=== PATIENT | male | born 1955 | race Caucasian/White ===

== ENCOUNTER 2016-05-17 14:44 | Inpatient (IN) | payer MEDICAID ==
[~2016-05-17] VITALS: Ht 167.6 cm; Wt 78.8 kg
[~2016-05-17 14:44] MED LIST: COMPLETE SENIOR1 TA1 PO; PYRIDIUM 100MG100 MG PO; ROXICODONE 55 MG/TAB PO; SENOKOT S 50 MG1 TAB PO
[2016-05-30 17:07] LABS: INR 1.1 (0.8-3.0); PROTHROMBIN TIME 12.6 SECONDS (9.7-12.8)
[2016-05-30 17:13] LABS: ADJUSTED CALCIUM 9.4 mg/dL (8.4-10.2); ALBUMIN 3.6 gm/dL (3.5-5.0); BILIRUBIN,TOTAL 1.3 mg/dL (0.0-1.0); CALCIUM 9.1 mg/dL (8.4-10.2); CREATININE, serum 1.12 mg/dL (0.66-1.25); TOTAL PROTEIN 7.6 gm/dL (6.4-8.2)
[2016-05-30 18:30] LABS: HEMOGLOBIN 12.1 g/dl (13.5-18.0); MEAN CELL VOLUME 96 fl (80.0-100.0); MEAN CORPUSCULAR HEMOGLOBIN 32 pg (27.0-31.0); MEAN CORPUSCULAR HGB CONC 33 g/dl (33.0-37.0); MEAN PLATELET VOLUME 13.7 fl (7.4-10.4); RED BLOOD COUNT 3.79 M/mm3 (4.20-5.60); REDCELL DISTRIBUTION WIDTH-CV 13.4 % (11.5-14.5); WHITE BLOOD COUNT 4.3 K/mm3 (4.8-10.8)
[2016-05-30 22:58] LABS: HEMATOCRIT 36.5 % (42.0-52.0)
[2016-05-31 16:10] LABS: PLATELET COUNT 39 K/mm3 (130-400)
[2016-06-01] VITALS (17 sets, daily range): BP systolic 105–133; BP diastolic 60–78; PULSE 59–88; TEMP 97.2–98.7
[2016-06-02 02:28] VITALS: BP 119/62; PULSE 85; TEMP 97.3
[2016-06-02 05:34] VITALS: BP 98/65; PULSE 73; TEMP 98.5
[2016-06-02 07:42] LABS: BASO % 0.1 % (0.0-2.0); GRAN # 7.4 (1.4-6.5); GRAN % 87.8 % (42.2-75.2); HEMOGLOBIN 12.1 g/dl (13.5-18.0); LYMPH # 0.5 (1.2-3.4); LYMPH % 6.1 % (20.0-51.0); MEAN CELL VOLUME 96 fl (80.0-100.0); MEAN CORPUSCULAR HEMOGLOBIN 32 pg (27.0-31.0); MEAN CORPUSCULAR HGB CONC 34 g/dl (33.0-37.0); MONO # 0.5 (0.1-0.6); MONO % 5.6 % (1.7-9.3); RED BLOOD COUNT 3.74 M/mm3 (4.20-5.60); REDCELL DISTRIBUTION WIDTH-CV 13.2 % (11.5-14.5); WHITE BLOOD COUNT 8.4 K/mm3 (4.8-10.8)
[2016-06-02 07:57] LABS: CALCIUM 8.7 mg/dL (8.4-10.2); CREATININE, serum 1.13 mg/dL (0.66-1.25)
[2016-06-02 08:05] LABS: HEMATOCRIT 35.9 % (42.0-52.0)
[2016-06-02 08:08] LABS: PLATELET COUNT 47 K/mm3 (130-400)
[2016-06-02 10:21] VITALS: BP 111/58; PULSE 63; TEMP 97.4
[2016-06-02 14:01] VITALS: BP 111/54; PULSE 67; TEMP 97.9
[2016-06-02 17:46] VITALS: BP 122/79; PULSE 70; TEMP 98.2
[2016-06-02 21:11] VITALS: BP 105/55; PULSE 64; TEMP 97.5
[2016-06-03 02:06] VITALS: BP 132/53; PULSE 71; TEMP 99.8
[2016-06-03 05:05] VITALS: BP 111/56; PULSE 88; TEMP 97.9
[2016-06-03 10:15] VITALS: BP 123/64; PULSE 74; TEMP 98.1
[2016-06-03 13:23] VITALS: BP 140/60; PULSE 70; TEMP 97
[2016-06-03 16:54] VITALS: BP 132/71; PULSE 88; TEMP 99.8
[2016-06-03 20:37] VITALS: BP 126/70; PULSE 90; TEMP 99.3
[2016-06-04 01:23] VITALS: TEMP 99.4
[2016-06-04 06:34] VITALS: BP 124/68; PULSE 88; TEMP 98.9
[2016-06-04 10:56] VITALS: BP 130/65; PULSE 87; TEMP 98.5
[2016-06-04 14:13] VITALS: BP 138/57; PULSE 90; TEMP 100.5
[2016-06-04 17:44] VITALS: BP 129/73; PULSE 91; TEMP 100.5
[2016-06-04 21:38] VITALS: BP 130/69; PULSE 86; TEMP 98
[2016-06-05 06:24] VITALS: BP 100/55; PULSE 76; TEMP 98.5
[2016-06-05 10:06] VITALS: BP 102/68; PULSE 61; TEMP 98.4
[2016-06-05 13:37] VITALS: BP 115/71; PULSE 82; TEMP 97.2
[2016-06-06 07:57] LABS: PATHOLOGY PLS
[2016-06-22 08:42] LABS: STONE ANALYSIS XXX
== END 2016-06-05 15:23 | disposition home or self-care (01) | DRG 660 ==
LOC: INPTSU 06-01 05:54 → SURG 06-01 13:00
PROVIDERS: Urology
PROC: 8E0W4CZ Robotic Assisted Procedure of Trunk Region, Percutaneous Endoscopic Approach (ICD-10-PCS; 2016-06-01)
PROC: 0TC44ZZ Extirpation of Matter from Left Kidney Pelvis, Percutaneous Endoscopic Approach (ICD-10-PCS; principal; 2016-06-01 13:00)
DX: N20.2 Calculus of kidney with calculus of ureter (principal); K76.6 Portal hypertension; D69.6 Thrombocytopenia, unspecified; K70.30 Alcoholic cirrhosis of liver without ascites; F10.10 Alcohol abuse, uncomplicated
CPT/HCPCS: 87522; A4315; A9284; J0690; J0694; J1100; J1170; J2270; J2405; J2704; J3010; J7030; J7120; P9035

== ENCOUNTER 2016-08-18 16:08 | Emergency (ER) | payer MEDICAID ==
[2016-08-18 16:15] VITALS: TEMP 97.6
[2016-08-18 17:13] LABS: BASO % 0.7 % (0.0-2.0); EOS # 0.1 (0.0-0.7); EOS % 2.4 % (0-4.0); GRAN # 1.5 (1.4-6.5); GRAN % 51.6 % (42.2-75.2); LYMPH % 34.8 % (20.0-51.0); MEAN CELL VOLUME 92 fl (80.0-100.0); MEAN CORPUSCULAR HGB CONC 34 g/dl (33.0-37.0); MEAN PLATELET VOLUME 13.4 fl (7.4-10.4); MONO # 0.3 (0.1-0.6); MONO % 10.5 % (1.7-9.3); RED BLOOD COUNT 3.76 M/mm3 (4.20-5.60); REDCELL DISTRIBUTION WIDTH-CV 14.7 % (11.5-14.5)
[2016-08-18 17:16] LABS: ADJUSTED CALCIUM 9.4 mg/dL (8.4-10.2); ALANINE AMINOTRANSFERASE 91 U/L (21-72); ALBUMIN 3.6 gm/dL (3.5-5.0); ALKALINE PHOSPHATASE 82 U/L (50-136); ANION GAP 12 mmol/L (7-16); BILIRUBIN,TOTAL 1.5 mg/dL (0.0-1.0); BLOOD UREA NITROGEN 19 mg/dL (9-20); C-REACTIVE PROTEIN < 0.5 mg/dL (0.0-0.9); CALCIUM 9.1 mg/dL (8.4-10.2); CARBON DIOXIDE 25 mmol/L (22-30); CHLORIDE 104 mmol/L (98-107); CREATININE, serum 1.09 mg/dL (0.66-1.25); GLUCOSE 130 mg/dL (74-106); LIPASE 149 U/L (23-300); POTASSIUM 3.4 mmol/L (3.4-5.0); SODIUM 141 mmol/L (137-145); TOTAL PROTEIN 7.3 gm/dL (6.4-8.2)
[2016-08-18 17:21] LABS: HEMATOCRIT 34.4 % (42.0-52.0); HEMOGLOBIN 11.7 g/dl (13.5-18.0); MEAN CORPUSCULAR HEMOGLOBIN 31 pg (27.0-31.0)
[2016-08-18 17:23] LABS: PLATELET COUNT 37 K/mm3 (130-400)
[2016-08-18 17:30] LABS: TROPONIN-I < 0.012 ng/mL (0.000-0.034)
[2016-08-18 17:56] LABS: PH 6 (5-8); SQUAMOUS EPITHELIAL 0-2 /hpf; URINE APPEARANCE Clear; URINE BACTERIA None Seen /hpf; URINE BILIRUBIN Negative (NEGATIVE); URINE BLOOD 2+ (NEGATIVE); URINE COLOR Yellow; URINE GLUCOSE Negative (NEGATIVE); URINE KETONE Negative (NEGATIVE); URINE WBC >50 /hpf
[2016-08-18] MEDS ORDERED: OMNICEF 300MG300 MG PO (19:28)
[2016-08-18 19:40] VITALS: BP 113/78; PULSE 60
== END 2016-08-18 19:41 | disposition home or self-care (01) ==
LOC: COL.ER 16:08
PROVIDERS: Emergency Medicine
DX: N39.0 Urinary tract infection, site not specified (principal); K80.20 Calculus of gallbladder without cholecystitis without obstruction; R41.0 Disorientation, unspecified; D61.818 Other pancytopenia; K70.30 Alcoholic cirrhosis of liver without ascites; Z87.442 Personal history of urinary calculi; F17.210 Nicotine dependence, cigarettes, uncomplicated
CPT/HCPCS: J2405; J7030; Q9967

== ENCOUNTER → 2017-01-16 | Outpatient (CLI) | payer MEDICAID ==
[~2017-01-16] MED LIST changes: +OMNICEF 300MG300 MG PO
[2017-01-16 13:33] LABS: ADD PATHOLOGY DIFF REVIEW NO
[2017-01-16 13:54] LABS: HEMOGLOBIN 12.1 g/dl (13.5-18.0); MEAN CELL VOLUME 93 fl (80.0-100.0); MEAN CORPUSCULAR HEMOGLOBIN 32 pg (27.0-31.0); MEAN CORPUSCULAR HGB CONC 35 g/dl (33.0-37.0); MEAN PLATELET VOLUME 12.5 fl (7.4-10.4); RED BLOOD COUNT 3.79 M/mm3 (4.20-5.60); REDCELL DISTRIBUTION WIDTH-CV 14.4 % (11.5-14.5); WHITE BLOOD COUNT 3.3 K/mm3 (4.8-10.8)
[2017-01-16 13:56] LABS: HEMATOCRIT 35.1 % (42.0-52.0)
[2017-01-16 14:01] LABS: PLATELET COUNT 36 K/mm3 (130-400)
[2017-01-16 14:19] LABS: ADJUSTED CALCIUM 9.4 mg/dL (8.4-10.2); ALBUMIN 3.7 gm/dL (3.5-5.0); BILIRUBIN,TOTAL 1.5 mg/dL (0.0-1.0); CALCIUM 9.2 mg/dL (8.4-10.2); CREATININE, serum 0.99 mg/dL (0.66-1.25); POTASSIUM 3.9 mmol/L (3.4-5.0); TOTAL PROTEIN 7.5 gm/dL (6.4-8.2)
[2017-01-16 14:47] LABS: BAND 11 % (0-10); EOSINOPHIL 2 % (0-4); NEUTROPHILS 48 % (42.0-75.2); PLATELET ESTIMATE DECREASED (NORMAL); TOTAL CELLS COUNTED 100
[2017-01-16 14:49] LABS: ANISOCYTOSIS 1+
== END ==
LOC: COL.LAB 12:47
PROVIDERS: Registered Nurse
DX: B19.20 Unspecified viral hepatitis C without hepatic coma (principal); N20.0 Calculus of kidney

== ENCOUNTER → 2017-01-26 | Outpatient (CLI) | payer MEDICAID ==
[2017-01-26 11:11] LABS: BASO % 0.7 % (0.0-2.0); EOS # 0.1 (0.0-0.7); EOS % 3.3 % (0-4.0); GRAN # 1.5 (1.4-6.5); GRAN % 54.8 % (42.2-75.2); HEMOGLOBIN 12.6 g/dl (13.5-18.0); LYMPH # 0.8 (1.2-3.4); LYMPH % 29.9 % (20.0-51.0); MEAN CELL VOLUME 92 fl (80.0-100.0); MEAN CORPUSCULAR HEMOGLOBIN 32 pg (27.0-31.0); MEAN CORPUSCULAR HGB CONC 34 g/dl (33.0-37.0); MEAN PLATELET VOLUME 12.1 fl (7.4-10.4); MONO # 0.3 (0.1-0.6); MONO % 10.9 % (1.7-9.3); RED BLOOD COUNT 3.97 M/mm3 (4.20-5.60); REDCELL DISTRIBUTION WIDTH-CV 14.3 % (11.5-14.5); WHITE BLOOD COUNT 2.7 K/mm3 (4.8-10.8)
[2017-01-26 11:16] LABS: HEMATOCRIT 36.7 % (42.0-52.0)
[2017-01-26 11:20] LABS: PLATELET COUNT 34 K/mm3 (130-400)
[2017-01-26 11:22] LABS: ADJUSTED CALCIUM 9.3 mg/dL (8.4-10.2); ALBUMIN 3.8 gm/dL (3.5-5.0); BILIRUBIN,TOTAL 1.5 mg/dL (0.0-1.0); CALCIUM 9.1 mg/dL (8.4-10.2); CREATININE, serum 0.98 mg/dL (0.66-1.25); POTASSIUM 3.9 mmol/L (3.4-5.0); TOTAL PROTEIN 7.6 gm/dL (6.4-8.2)
[2017-01-26 11:49] LABS: INR 1.1 (0.8-3.0); PROTHROMBIN TIME 12.4 SECONDS (9.7-12.8)
[2017-01-30 21:29] LABS: HCV GENOTYPE 3 (())
== END ==
LOC: COL.LAB 10:26
PROVIDERS: Physician Assistant
DX: B19.20 Unspecified viral hepatitis C without hepatic coma (principal); D64.9 Anemia, unspecified; R74.8 Abnormal levels of other serum enzymes

== ENCOUNTER → 2017-02-21 | Outpatient (CLI) | payer MEDICAID ==
[2017-02-21 12:37] LABS: AMPHETAMINE URINE NEGATIVE; BARBITURATES URINE NEGATIVE; BENZODIAZEPINES URINE NEGATIVE; BUPRENORPHINE URINE NEGATIVE; METHADONE URINE NEGATIVE; OPIATES URINE NEGATIVE; OXYCODONE URINE NEGATIVE; PHENCYCLIDINE URINE NEGATIVE; PROPOXYPHENE URINE NEGATIVE; THC CANNABINOIDS URINE POSITIVE; TRICYCLIC ANTIDEPRESS URINE NEGATIVE
== END ==
LOC: COL.LAB 11:21
DX: B18.2 Chronic viral hepatitis C (principal)

== ENCOUNTER → 2017-08-14 | Outpatient (CLI) | payer MEDICAID | LOC: COL.LAB 13:50 | DX: B18.2 Chronic viral hepatitis C (principal) ==

== ENCOUNTER → 2017-12-07 | Outpatient (CLI) | payer MEDICAID ==
[2017-12-07 14:32] LABS: BASO % 0.6 % (0.0-2.0); EOS # 0.1 (0.0-0.7); EOS % 2.8 % (0-4.0); GRAN # 1.8 (1.4-6.5); GRAN % 56.2 % (42.2-75.2); HEMOGLOBIN 12.3 g/dl (13.5-18.0); LYMPH # 0.9 (1.2-3.4); LYMPH % 29.2 % (20.0-51.0); MEAN CELL VOLUME 92 fl (80.0-100.0); MEAN CORPUSCULAR HEMOGLOBIN 32 pg (27.0-31.0); MEAN CORPUSCULAR HGB CONC 35 g/dl (33.0-37.0); MEAN PLATELET VOLUME 12.1 fl (7.4-10.4); MONO # 0.4 (0.1-0.6); MONO % 11.2 % (1.7-9.3); RED BLOOD COUNT 3.84 M/mm3 (4.20-5.60); REDCELL DISTRIBUTION WIDTH-CV 14.7 % (11.5-14.5)
[2017-12-07 14:38] LABS: INR 1.2 (0.8-3.0); PROTHROMBIN TIME 13.6 SECONDS (9.7-12.8)
[2017-12-07 14:41] LABS: HEMATOCRIT 35.3 % (42.0-52.0)
[2017-12-07 14:44] LABS: PLATELET COUNT 42 K/mm3 (130-400)
[2017-12-07 14:45] LABS: ALBUMIN 3.8 gm/dL (3.5-5.0); BILIRUBIN,TOTAL 1.6 mg/dL (0.0-1.0); CALCIUM 8.6 mg/dL (8.4-10.2); CREATININE, serum 1.05 mg/dL (0.66-1.25); POTASSIUM 4.3 mmol/L (3.4-5.0); TOTAL PROTEIN 7.4 gm/dL (6.4-8.2)
== END ==
LOC: COL.LAB 13:55
PROVIDERS: Physician Assistant
DX: B18.2 Chronic viral hepatitis C (principal)

== ENCOUNTER → 2018-06-21 | Outpatient (CLI) | payer MEDICARE, MEDICAID | LOC: COL.RAD 08:15 | DX: D69.6 Thrombocytopenia, unspecified (principal); B18.2 Chronic viral hepatitis C; K74.60 Unspecified cirrhosis of liver; E80.6 Other disorders of bilirubin metabolism; K80.20 Calculus of gallbladder without cholecystitis without obstruction; N20.0 Calculus of kidney ==

== ENCOUNTER → 2019-04-11 | Outpatient (CLI) | payer MEDICARE, MEDICAID ==
[2019-04-11 10:11] LABS: BASO % 0.6 % (0.0-2.0); EOS # 0.1 (0.0-0.7); EOS % 2.2 % (0-4.0); GRAN # 1.8 (1.4-6.5); GRAN % 56.8 % (42.2-75.2); HEMOGLOBIN 13.3 g/dl (13.5-18.0); LYMPH % 31.3 % (20.0-51.0); MEAN CELL VOLUME 90 fl (80.0-100.0); MEAN CORPUSCULAR HEMOGLOBIN 31 pg (27.0-31.0); MEAN CORPUSCULAR HGB CONC 34 g/dl (33.0-37.0); MEAN PLATELET VOLUME 11.8 fl (7.4-10.4); MONO # 0.3 (0.1-0.6); MONO % 9.1 % (1.7-9.3); RED BLOOD COUNT 4.34 M/mm3 (4.20-5.60); REDCELL DISTRIBUTION WIDTH-CV 14.3 % (11.5-14.5)
[2019-04-11 10:16] LABS: PLATELET COUNT 48 K/mm3 (130-400)
[2019-04-11 10:18] LABS: INR 1.2 (0.8-3.0); PROTHROMBIN TIME 13.7 SECONDS (9.7-12.8)
[2019-04-11 10:23] LABS: ALBUMIN 4.4 gm/dL (3.5-5.0); BILIRUBIN,TOTAL 1.4 mg/dL (0.0-1.0); CALCIUM 9.4 mg/dL (8.4-10.2); CREATININE, serum 0.99 (0.66-1.25); POTASSIUM 4.6 mmol/L (3.4-5.0)
== END ==
LOC: COL.RAD 08:47 → COL.LAB 08:47 → COL.RAD 09:00
PROVIDERS: Physician Assistant
DX: K74.60 Unspecified cirrhosis of liver (principal); K80.80 Other cholelithiasis without obstruction; N20.0 Calculus of kidney; K76.9 Liver disease, unspecified; B18.2 Chronic viral hepatitis C; D69.6 Thrombocytopenia, unspecified

== ENCOUNTER 2020-10-01 09:38 | Day surgery (SDC) | payer MEDICARE, MEDICAID ==
[~2020-10-01] VITALS: Ht 170.2 cm; Wt 88.5 kg
[2020-10-01 09:57] VITALS: BP 120/70; PULSE 59; TEMP 98.3
[2020-10-01 11:10] VITALS: BP 126/64; PULSE 55
--- NOTE | 2020-10-01 11:10 | NUR ---
TO BAY 4 PER CART FROM ENDOSCOPY. ALERT ORIENTED X 3, AMBULATED TO RECLINER WITH 2 ASSIST. RECEIVED WATER AND COFFEE. PATIENT CAN UNDERSTAND A FEW WORDS.
[2020-10-01 11:25] VITALS: BP 109/87; PULSE 67
--- NOTE | 2020-10-01 11:25 | NUR ---
FRIEND MANOLO SAUER RIGHT OF WAY CLEARER. PATIENT RECEIVED MUFFIN.
[2020-10-01 11:40] VITALS: BP 133/71; PULSE 53
--- NOTE | 2020-10-01 11:40 | NUR ---
DR GARCÍA INTO TALK WITH PATIENT WITH FRIEND AT BEDSIDE.
--- NOTE | 2020-10-01 11:50 | NUR ---
RECEIVED DISCHARGE INSTRUCTIONS AND VERBALIZED UNDERSTANDING. DISCONTINUED IV AND INT- CATHETER INTACT.
--- NOTE | 2020-10-01 12:00 | NUR ---
DISCHARGED PER WC BY NURSING STAFF TO PRIVATE CAR IN CARE OF IN LAW CALE SAUER.
== END 2020-10-01 12:15 ==
LOC: SDCO 09:38
DX: Z12.11 Encounter for screening for malignant neoplasm of colon (principal); K70.30 Alcoholic cirrhosis of liver without ascites; D69.6 Thrombocytopenia, unspecified; E66.9 Obesity, unspecified; F33.9 Major depressive disorder, recurrent, unspecified; F12.90 Cannabis use, unspecified, uncomplicated; Z90.89 Acquired absence of other organs; Z79.899 Other long term (current) drug therapy; Z79.891 Long term (current) use of opiate analgesic; Z87.440 Personal history of urinary (tract) infections
CPT/HCPCS: J2704; J7120

== ENCOUNTER 2021-04-17 17:11 | Inpatient (IN) | payer MEDICARE, MEDICAID ==
[~2021-04-17] VITALS: Ht 167.6 cm; Wt 84.1 kg
[2021-04-17 18:54] LABS: COLLECTION METHOD CLEAN CATCH
[2021-04-17 19:00] LABS: BASO % 0.4 % (0.0-2.0); EOS % 0.4 % (0.0-4.0); GRAN # 3.8 K/mm3 (1.4-6.5); GRAN % 75.8 % (42.2-75.2); HEMOGLOBIN 12.8 g/dl (13.5-18.0); LYMPH # 0.5 K/mm3 (1.2-3.4); LYMPH % 10.7 % (20.0-51.0); MEAN CELL VOLUME 96 fl (80.0-100.0); MEAN CORPUSCULAR HEMOGLOBIN 32 pg (27-31); MEAN CORPUSCULAR HGB CONC 34 g/dl (33.0-37.0); MEAN PLATELET VOLUME 13.4 fl (7.4-10.4); MONO # 0.6 K/mm3 (0.1-0.6); MONO % 12.3 % (1.7-9.3); PLATELET COUNT 50 K/mm3 (130-400); RED BLOOD COUNT 3.95 M/mm3 (4.20-5.60); REDCELL DISTRIBUTION WIDTH-CV 15.8 % (11.5-14.5)
[2021-04-17 19:01] LABS: MUCOUS Present (NOT PRESENT); PH 5 (5-8); URINE APPEARANCE Hazy (CLEAR/HAZY); URINE BACTERIA None Seen (NONE SEEN); URINE BILIRUBIN Positive (NEGATIVE); URINE BLOOD 2+ (NEGATIVE); URINE COLOR Amber (YELLOW); URINE GLUCOSE Negative (NEGATIVE); URINE KETONE Negative (NEGATIVE); URINE LEUKOCYTE ESTERASE 1+ (NEGATIVE); URINE NITRATE Negative (NEGATIVE); URINE PROTEIN(semi-quant) Negative (NEGATIVE); URINE UROBILINOGEN >=4.0 mg/dL (NEGATIVE)
[2021-04-17 19:13] LABS: ALBUMIN 3.9 gm/dL (3.4-4.8); CALCIUM 9.3 mg/dL (8.4-10.2); POTASSIUM 3.9 mmol/L (3.5-4.5)
[2021-04-18 00:25] LABS: INR 1.3 (0.8-3.0); PROTHROMBIN TIME 14.8 SECONDS (9.7-12.8)
[2021-04-18 12:51] VITALS: BP 136/71; PULSE 80; TEMP 97.8
--- NOTE | 2021-04-18 12:52 | NUR ---
Patient arrives to room 347. Family at bedside. See flowsheet for vital signs. Essence is salvadorean speaking only. INT to LAC noted.
[2021-04-18] MEDS ORDERED: LIPITOR 40MG TA40 MG PO (13:19)
[2021-04-18] MEDS ORDERED: FLOMAX 0.40.4 MG/CAP (13:20)
--- NOTE | 2021-04-18 13:37 | NUR ---
Construction Project Assistant line utilized for admission interview. Pt and family speak very broken georgian. Medication reconciliation completed. NKA. Oriented to room and call light system. Vaccine information received. Call light wtihin reach. Pt and family know how to call for help. Pt is alert oriented, x4.
[2021-04-18 15:58] VITALS: BP 148/67; PULSE 74; TEMP 98.3
--- NOTE | 2021-04-18 16:31 | NUR ---
Patien with c/o abdominal pain. Morphine given, see MAR. remains at bedside. Call light within reach.
--- NOTE | 2021-04-18 18:56 | NUR ---
[employer] line used for supper order. Reports relief from morphine. USes call light when he needs assistance.
[2021-04-18 20:18] VITALS: BP 145/69; PULSE 72; TEMP 98.2
[2021-04-19] VITALS (7 sets, daily range): BP systolic 114–152; BP diastolic 53–73; PULSE 64–75; TEMP 97.3–98.4
--- NOTE | 2021-04-19 05:41 | NUR ---
RESTING QUIETLY MOST OF NIGHT. HAS DENIED NEED FOR PRN PAIN MEDICATION. ABDOMEN DISTENDED. SKIN IS SLIGHTLY JAUNDICED IN APPEARANCE.
[2021-04-19 07:30] LABS: INR 1.4 (0.8-3.0); PROTHROMBIN TIME 15.3 SECONDS (9.7-12.8)
[2021-04-19 07:31] LABS: ALBUMIN 2.9 gm/dL (3.4-4.8); BILIRUBIN,TOTAL 19.9 mg/dL (0.2-1.2); CALCIUM 8.4 mg/dL (8.4-10.2); CREATININE, serum 0.9 mg/dL (0.72-1.25); POTASSIUM 3.7 mmol/L (3.5-4.5); TOTAL PROTEIN 6.2 gm/dL (6.2-8.1)
--- NOTE | 2021-04-19 08:41 | NUR ---
Patient to Mri with tech. His at bedside. Patient provided with mouth swabs per request, he has been NPO. He denies pain when asked. He was up to the bathroom & voided. Patient is very jaundiced in color. Patient primary language is tunisian making communication difficult at times. Will await his return
--- NOTE | 2021-04-19 09:41 | NUR ---
NOTIFIED FOR CONSULT. UNAVALIABLE THIS WEEK.
--- NOTE | 2021-04-19 12:25 | NUR ---
rounding & bull gang supervisor line used for consultation.
--- NOTE | 2021-04-19 13:06 | NUR ---
rounded with Nata Rn assisting with interpertation, per . Lunch ordered
--- NOTE | 2021-04-19 17:42 | NUR ---
Patient has rested this afternoon. His supportive remains at bedside. He has been up and voided tea colored output. Working on dinner tray aware, aware he will be NPO at [facility]. Will monitor & report off to nightnurse
--- NOTE | 2021-04-19 19:16 | NUR ---
Bedside report to Venessa.
--- NOTE | 2021-04-20 03:22 | NUR ---
patient up ambulating halls independently at 2200 with no complaints of pain. printed education over flagyl and liver biopsy given to pt and in mauritian. scheduled melatonin was given. is at bedside. patient sleeping.
[2021-04-20 04:08] VITALS: BP 125/54; PULSE 75; TEMP 97.9
--- NOTE | 2021-04-20 06:30 | NUR ---
Pt resting with eyes closed, even non labored breathing
[2021-04-20 07:02] LABS: BASO % 0.6 % (0.0-2.0); EOS % 1.2 % (0.0-4.0); GRAN # 2.4 K/mm3 (1.4-6.5); LYMPH # 0.4 K/mm3 (1.2-3.4); LYMPH % 12.1 % (20.0-51.0); MEAN CELL VOLUME 96 fl (80.0-100.0); MEAN CORPUSCULAR HEMOGLOBIN 33 pg (27-31); MEAN CORPUSCULAR HGB CONC 34 g/dl (33.0-37.0); MONO # 0.4 K/mm3 (0.1-0.6); MONO % 11.8 % (1.7-9.3); RED BLOOD COUNT 3.36 M/mm3 (4.20-5.60); REDCELL DISTRIBUTION WIDTH-CV 15.9 % (11.5-14.5)
[2021-04-20 07:11] LABS: INR 1.3 (0.8-3.0); PROTHROMBIN TIME 14.9 SECONDS (9.7-12.8)
[2021-04-20 07:38] LABS: ALBUMIN 2.9 gm/dL (3.4-4.8); BILIRUBIN,TOTAL 22.8 mg/dL (0.2-1.2); CALCIUM 8.4 mg/dL (8.4-10.2); CREATININE, serum 0.92 mg/dL (0.72-1.25); MAGNESIUM 1.9 mg/dL (1.6-2.6); POTASSIUM 3.6 mmol/L (3.5-4.5); TOTAL PROTEIN 6.2 gm/dL (6.2-8.1)
[2021-04-20 08:12] VITALS: BP 130/63; PULSE 71; TEMP 97.8
[2021-04-20 08:30] LABS: HEMATOCRIT 32.1 % (42.0-52.0)
[2021-04-20 08:31] LABS: PLATELET COUNT 42 K/mm3 (130-400)
--- NOTE | 2021-04-20 10:25 | NUR ---
Used translating line to discussed liver biopsy that he is going down for. Consent signed. New IV started in the right hand due to the one in his left ac leaking. Pt at bedside. Pt has no complaints of pain, all questions answered, call light within reach
--- NOTE | 2021-04-20 10:30 | NUR ---
The patient and his are turkish speaking. SW met with the patient and his , Monae (ph#[phone]), to discuss discharge plan. SW utilized the [employer]. The patient lives in [place] with his . Monae reports that the patient is independent with ADLs and does not have any DME. The patient's PCP is Dr. Sydney Navarro and he receives his medications from [facility]. The patient's DPOA-HC is in EMR and it designates his . The patient plans on returning home with his upon discharge. They had no concerns for SW at this time. SW to continue to monitor. *Discharge plan: home with *
--- NOTE | 2021-04-20 11:30 | NUR ---
Pt off the floor for liver biopsy
--- NOTE | 2021-04-20 12:02 | NUR ---
Informed Kacie that procedure was a canceled. Due to being unable to get to the lesion and the pts platelet count. Informed that Dr Sanodval talked with Dr Berger regarding not being able to complete the procedure.
--- NOTE | 2021-04-20 12:11 | NUR ---
Dr Davila in with pt at this time. Radiology was not able to perform biopsy
[2021-04-20] MEDS ORDERED: ZOFRAN ODT4 MG PO (13:57)
[2021-04-20] MEDS ORDERED: PROTONIX 40MG T40 MG PO (13:57)
[2021-04-20] MEDS ORDERED: ATARAX 25MG25 MG/TAB PO (13:57)
[2021-04-20] MEDS ORDERED: ROXICODONE 55 MG/TAB PO (13:59)
--- NOTE | 2021-04-20 14:00 | NUR ---
Dr Berger discussed pt diagnosis with him and his using translating line. Pt/ would like to go home. Discharge orders being entered
--- NOTE | 2021-04-20 15:08 | NUR ---
Pt and his have decided to go home now. They are both distressed by the news they recieved. is on the phone talking with someone and pt is eating lunch and anxious to leave. A palliative care consult is not going to be possible today but I did contact Dr Bean's office and reported that I would be happy to meet with the family later, after they have talked with oncology. Dr Berger was notified of difficulty with palliative consult and agreed to not do the consult at this time.
--- NOTE | 2021-04-20 15:22 | NUR ---
Reviewed discharge instructions with pt with language translator. All questions answered. Pt escorted out at this time
== END 2021-04-20 15:24 | disposition home or self-care (01) | DRG 436 ==
LOC: COL.ER 17:11 → SURG 04-18 10:23
PROVIDERS: Emergency Medicine; Internal Medicine; Nurse Practitioner Family; Physician Assistant
DX: C22.0 Liver cell carcinoma (principal); K80.10 Calculus of gallbladder with chronic cholecystitis without obstruction; K70.31 Alcoholic cirrhosis of liver with ascites; E78.5 Hyperlipidemia, unspecified; B19.20 Unspecified viral hepatitis C without hepatic coma; D64.9 Anemia, unspecified; D69.6 Thrombocytopenia, unspecified
CPT/HCPCS: 99223-AI; 99233-AI; 99239; J0295; J0696; J1650; J2270; J7030; Q9967

== ENCOUNTER 2021-05-08 06:16 | Emergency (ER) | payer MEDICARE, MEDICAID ==
[~2021-05-08] VITALS: Ht 170.2 cm; Wt 77.3 kg
[~2021-05-08 06:16] MED LIST changes: +ATARAX 25MG25 MG/TAB PO; +FLOMAX 0.40.4 MG/CAP; +LIPITOR 40MG TA40 MG PO; +PROTONIX 40MG T40 MG PO; +ZOFRAN ODT4 MG PO
[2021-05-08 06:26] VITALS: BP 99/57; PULSE 71; TEMP 97.2
[2021-05-08 06:40] LABS: BASO % 0.2 % (0.0-2.0); GRAN # 12.7 K/mm3 (1.4-6.5); GRAN % 89.5 % (42.2-75.2); HEMATOCRIT 38.7 % (42.0-52.0); HEMOGLOBIN 13.1 g/dl (13.5-18.0); LYMPH # 0.5 K/mm3 (1.2-3.4); LYMPH % 3.6 % (20.0-51.0); MEAN CELL VOLUME 100 fl (80.0-100.0); MEAN CORPUSCULAR HEMOGLOBIN 34 pg (27-31); MEAN CORPUSCULAR HGB CONC 34 g/dl (33.0-37.0); MEAN PLATELET VOLUME 13.1 fl (7.4-10.4); MONO # 0.8 K/mm3 (0.1-0.6); MONO % 5.6 % (1.7-9.3); PLATELET COUNT 101 K/mm3 (130-400); RED BLOOD COUNT 3.89 M/mm3 (4.20-5.60); REDCELL DISTRIBUTION WIDTH-CV 19.9 % (11.5-14.5)
[2021-05-08 06:48] LABS: INR 2.3 (0.8-3.0); PROTHROMBIN TIME 25.8 SECONDS (9.7-12.8)
[2021-05-08 06:50] LABS: PARTIAL THROMBOPLASTIN TIME 35.7 SECONDS (26.0-37.0)
[2021-05-08] MEDS ORDERED: AMBIEN 10MG10 MG PO (06:56)
[2021-05-08] MEDS ORDERED: DULCOLAX TAB5 MG PO (06:58)
[2021-05-08 07:04] LABS: LACTIC ACID 4.2 mmol/L (0.5-2.0)
[2021-05-08 07:32] LABS: CREATININE, serum 7.82 mg/dL (0.72-1.25)
[2021-05-08 07:35] LABS: CALCIUM 8.3 mg/dL (8.4-10.2); TOTAL PROTEIN 6.1 gm/dL (6.2-8.1)
[2021-05-08 07:36] LABS: ALBUMIN 2.3 gm/dL (3.4-4.8); BILIRUBIN,TOTAL 62.6 mg/dL (0.2-1.2); C-REACTIVE PROTEIN 4.88 mg/dL (0.00-0.50)
[2021-05-08 07:39] LABS: POTASSIUM 7.1 mmol/L (3.5-4.5); TROPONIN-I 0.05 ng/mL (0.00-0.033)
--- NOTE | 2021-05-08 14:23 | NUR ---
DUSTIN informed of patient and family needing assistance with end of life care resources. DUSTIN informed that patient and family previously met with [facility] staff. SW called [facility] staff and staff provided a meeting was previously held, but meeting was not complete due to language barrier. DUSTIN asked [facility] staff of the next steps for patient and family to have a meeting to set up services. SW informed by staff that she would have to contact SW in order for next steps to take place and would give SW a call back. SW was later informed by [facility] staff the their Research Laboratory Specialist would be unable to assist due to health reasons and another Research Laboratory Specialist contacted could not assist due to being out of town. This SW contacted other agencies for referral of services for patient. Later DUSTIN informed by ED staff that patient had and further services were no longer needed. Nothing further.
== END 2021-05-08 16:39 | disposition expired ==
LOC: COL.ER 06:16
PROVIDERS: Emergency Medicine
DX: K76.89 Other specified diseases of liver (principal); M79.10 Myalgia, unspecified site; R62.7 Adult failure to thrive; N17.9 Acute kidney failure, unspecified; E87.5 Hyperkalemia; R94.4 Abnormal results of kidney function studies; E87.2 Acidosis; I10 Essential (primary) hypertension; N40.0 Benign prostatic hyperplasia without lower urinary tract symptoms; Z79.899 Other long term (current) drug therapy; Z20.822 Contact with and (suspected) exposure to COVID-19
CPT/HCPCS: J1170; J1200; J2270; J2405; J7030